=== PATIENT | female | born 1945 | race Caucasian/White ===

== ENCOUNTER 2018-02-01 13:26 | Emergency (ER) | payer MEDICARE ==
[~2018-02-01] VITALS: Ht 165.1 cm; Wt 65.4 kg
[2018-02-01 13:51] VITALS: BP 169/75
[2018-02-01] MEDS ORDERED: magnesium citrate 296ml oral solution PO ONE (14:35)
[2018-02-01] MEDS ORDERED: bisacodyl 10mg suppository rectal RC STA (14:50)
[2018-02-01] MEDS ORDERED: POLY17PO10 PO (17:13)
== END 2018-02-01 17:38 | disposition home or self-care (01) ==
LOC: ER 13:27
DX: K59.00 Constipation, unspecified (principal); Z90.49 Acquired absence of other specified parts of digestive tract; Z90.710 Acquired absence of both cervix and uterus; Z79.899 Other long term (current) drug therapy
CPT/HCPCS: 74018; 99284